=== PATIENT | female | born 1945 | race Caucasian/White ===

== ENCOUNTER 2021-04-17 00:05 | Emergency (ER) | payer MEDICARE, OTHER ==
[~2021-04-17] VITALS: Ht 149.9 cm; Wt 35.0 kg
--- NOTE | 2021-04-17 00:11 | NUR ---
biba from home for productive cough x2 months and increased SOB starting tonioght. no covid vaccine. hx of asthma. vss, nadn. ermd [place] at bedside for eval
[2021-04-17] MEDS ORDERED: methylPREDNISolone SOD SUCC 125 MG/2 ML ONE (00:28)
[2021-04-17] MEDS ORDERED: ALBUTEROL/IPRATROPIUM 2.5MG/0.5MG, 3 ML ONE (00:28)
[2021-04-17] MEDS ORDERED: methylPREDNISolone SOD SUCC 125 MG/2 ML IV ONE (00:30)
[2021-04-17] MEDS ORDERED: ALBUTEROL/IPRATROPIUM 2.5MG/0.5MG, 3 ML NPPB SCH (00:30)
[2021-04-17 00:38] LABS: BASOPHILS % (AUTO) 0 % (0-1); EOSINOPHILS % (AUTO) 8 % (1-7); LYMPHOCYTES % (AUTO) 22 % (22-44); MEAN CORPUSCULAR HEMOGLOBIN 28.6 pg (27.0-34.8); MEAN PLATELET VOLUME 7.1 fL (7.4-10.4); MONOCYTES % (AUTO) 7 % (2-9); NEUTROPHILS % (AUTO) 62 % (42-75); PLATELET COUNT 363 x10^3/uL (130-400); RED BLOOD COUNT 4.73 x10^6/uL (3.82-5.3); RED CELL DISTRIBUTION WIDTH 13.9 % (9.6-15.2)
[2021-04-17 00:44] VITALS: BP 125/77
--- NOTE | 2021-04-17 00:48 | NUR ---
breathing tx in progress, pt tolerating well. vss, nadn.
[2021-04-17 00:49] LABS: ALANINE AMINOTRANSFERASE 32 U/L (12-78); ALBUMIN 3.2 g/dL (3.4-5.0); ANION GAP 8 mmol/L (5-15); CALCIUM 9.3 mg/dL (8.5-10.1); CHLORIDE 103 mmol/L (98-107); CREATININE 0.64 mg/dL (0.55-1.02)
[2021-04-17 00:54] LABS: ALKALINE PHOSPHATASE 118 U/L (45-117); BILIRUBIN,TOTAL 0.4 mg/dL (0.2-1.0); TOTAL PROTEIN 7.6 g/dL (6.4-8.2); TROPONIN I < 0.015 ng/mL (0.000-0.045)
[2021-04-17] MEDS ORDERED: POTASSIUM CHLORIDE 20 MEQ TAB.ER.PRT ONE (02:06)
[2021-04-17] MEDS ORDERED: POTASSIUM CHLORIDE 20 MEQ TAB.ER.PRT PO ONE (02:30)
--- NOTE | 2021-04-17 02:36 | NUR ---
PT RESTING IN BED, VSS, NSR, NADN. AWAITING CXR AND DC.
== END 2021-04-17 03:03 | disposition home or self-care (01) ==
LOC: ED 00:15
DX: J44.1 Chronic obstructive pulmonary disease with (acute) exacerbation (principal); R06.00 Dyspnea, unspecified; E11.9 Type 2 diabetes mellitus without complications
CPT/HCPCS: 36415; 71045; 80053; 83880; 84484; 85025; 93005; 94640; 96374; 99285; J2930

== ENCOUNTER 2021-04-19 01:15 | Emergency (ER) | payer MEDICARE, OTHER ==
[~2021-04-19] VITALS: Ht 149.9 cm; Wt 37.0 kg
--- NOTE | 2021-04-19 01:20 | NUR ---
TATUM FROM HOME. PT WAS TREATED FOR ASTHMA AND WAS TOLD TO COME BACK IF SYMPTOMS CAME BACK THEN COME BACK TO THE ER. PT STATES DIFFICULTY BREATHING, WITH PROCTIVE COUGH OF WHITE SPUTUM. ATTACHED TO MONITORS, FELIXSTERE. BED IN LOW, RAILS ENGAGED, CALL LIGHT ON LAP.
[2021-04-19] MEDS ORDERED: SODIUM CHLORIDE FLUSH 10ML SYR IVF ONE (01:30)
[2021-04-19] MEDS ORDERED: methylPREDNISolone SOD SUCC 125 MG/2 ML IV ONE (01:30)
[2021-04-19] MEDS ORDERED: methylPREDNISolone SOD SUCC 125 MG/2 ML ONE (01:40)
[2021-04-19] MEDS ORDERED: ALBUTEROL/IPRATROPIUM 2.5MG/0.5MG, 3 ML ONE ×2 (01:40→02:23)
[2021-04-19] MEDS: ALBUTEROL/IPRATROPIUM 2.5MG/0.5MG, 3 ML NPPB SCH ×2 (01:44→02:31)
--- NOTE | 2021-04-19 01:46 | NUR ---
EKG DONE, XRAY AT BEDSIDE
[2021-04-19 01:52] LABS: BASOPHILS % (AUTO) 0 % (0-1); EOSINOPHILS % (AUTO) 0 % (1-7); LYMPHOCYTES % (AUTO) 9 % (22-44); MEAN CORPUSCULAR HEMOGLOBIN 28.7 pg (27.0-34.8); MEAN CORPUSCULAR HGB CONC 33.9 g/dL (32.4-35.8); MEAN PLATELET VOLUME 7.4 fL (7.4-10.4); MONOCYTES % (AUTO) 3 % (2-9); NEUTROPHILS % (AUTO) 88 % (42-75); PLATELET COUNT 417 x10^3/uL (130-400); RED BLOOD COUNT 4.74 x10^6/uL (3.82-5.3); RED CELL DISTRIBUTION WIDTH 13.7 % (9.6-15.2)
[2021-04-19] MEDS ORDERED: PLEASE ENTER ALLERGIES MC SCH (02:00)
[2021-04-19 02:01] LABS: ALANINE AMINOTRANSFERASE 31 U/L (12-78); ALBUMIN 3.4 g/dL (3.4-5.0); ANION GAP 7 mmol/L (5-15); CALCIUM 9.1 mg/dL (8.5-10.1); CHLORIDE 102 mmol/L (98-107); CREATININE 0.69 mg/dL (0.55-1.02)
[2021-04-19 02:05] LABS: ALKALINE PHOSPHATASE 115 U/L (45-117); BILIRUBIN,TOTAL 0.4 mg/dL (0.2-1.0); TROPONIN I < 0.015 ng/mL (0.000-0.045)
[2021-04-19] MEDS ORDERED: BACITRACIN ZINC OINT 500U/GM, 0.9 GM ONE (02:23)
[2021-04-19] MEDS ORDERED: FUROSEMIDE 40 MG/4 ML ONE (02:23)
[2021-04-19] MEDS ORDERED: FUROSEMIDE 40 MG/4 ML IV ONE (02:30)
[2021-04-19 02:33] VITALS: BP 144/108
--- NOTE | 2021-04-19 02:34 | NUR ---
AMEENA CONSULTING WITH PT AT BEDSIDE. AMEENA DISCUSSED WITH PT ABOUT STAYING IN HOSPITAL AND PT REFUSED STATING SHE WANTED TO GO HOME. PT ON SECOND BREATHING TX. TERE. VENTURA. NAREN
[2021-04-19] MEDS ORDERED: POTASSIUM CHLORIDE 20 MEQ PACKET PO ONE (03:00)
--- NOTE | 2021-04-19 03:03 | NUR ---
Patient is resting comfortably in bed. Bed in lowest, rails engaged, call light on lap. Vital Signs within normal limits. WCTM. FINISHED 2ND BREATHING TX AND PT REPORTS FEELING A LOT BETTER. LUNG SOUNDS ARE A LOT MORE CLEAR TOO.
[2021-04-19] MEDS ORDERED: POTASSIUM CHLORIDE 20 MEQ PACKET ONE (03:06)
--- NOTE | 2021-04-19 03:45 | NUR ---
Patient/Caregiver given discharge instructions and they have confirmed that they understand the instructions. Patient ambulatory with steady gait. NAD, all questions answered appropriately, denies additional needs at this time. No personal belongings left in room after discharge.
== END 2021-04-19 03:48 | disposition home or self-care (01) ==
LOC: ED 02:00
DX: J44.1 Chronic obstructive pulmonary disease with (acute) exacerbation (principal); R06.00 Dyspnea, unspecified; E11.9 Type 2 diabetes mellitus without complications
CPT/HCPCS: 36415; 71045; 80053; 83880; 84484; 85025; 93005; 94640; 96374; 96375; 99285; J1940; J2930